=== PATIENT | female | born 1995 | race Caucasian/White ===

== ENCOUNTER 2018-03-11 05:43 | Inpatient (IN) ==
[2018-03-11 06:47] LABS: Hematocrit 27.4 VOL% (35.7-47.0); Hemoglobin 8.7 GM/DL (12.0-16.0); Immature Granulocytes % 1.6 %; Immature Granulocytes Absolute 0.17 #; Lymphocytes # 1.4 10*3/uL (1.4-4.0); Lymphocytes % 13.3 % (21.3-54.2); Mean Corpuscular HGB Conc 31.8 GM/DL (32-36); Mean Corpuscular Hemoglobin 26 PG (27-34); Mean Corpuscular Volume 82.3 FL (87-102); Mean Platelet Volume 10.7 FL (9.6-12.0); Monocytes # 0.3 10*3/uL (0.11-0.8); Monocytes % 3.2 % (1.7-12.7); NRBC # 0.02 10*3/uL; Neutrophils # 8.7 10*3/uL (1.4-7.4); Neutrophils % 81.9 % (38.7-73.9); Platelet Count 314 T/CUMM (130-400); Red Blood Count 3.33 MC/CUMM (3.8-5.5); Red Cell Distribution Width 14.6 % (9.3-17.3); White Blood Count 10.6 T/CUMM (4-12)
[2018-03-11 11:23] LABS: Amorphous Crystals,Urine Occasional /HPF (Few); Apearance,Urine Slightly Hazy (Clear); Bilirubin,Urine Negative (Negative); Blood, Urine Negative (Negative); Glucose,Urine (UA) Negative (Negative); Ketones,Urine 20 mg/dL (Negative); Nitrite,Urine Negative (Negative); Protein,Urine Negative; RBC,Urine 3 /HPF (0-4); Squamous Epithelial Cell,Urine Occasional /HPF (0-10); Urine Color Yellow (Yellow); Urine Specific Gravity 1.008 (1.001-1.035); Urine Urobilinogen < 2.0 EU/DL (0.2-1.0); WBC,Urine 12 /HPF (0-6)
[2018-03-12 07:23] LABS: Eosinophils % 0.3 % (0.00-10.9); Hematocrit 18.1 VOL% (35.7-47.0); Immature Granulocytes % 0.9 %; Lymphocytes # 2.1 10*3/uL (1.4-4.0); Lymphocytes % 18.6 % (21.3-54.2); Mean Corpuscular HGB Conc 31.5 GM/DL (32-36); Mean Corpuscular Hemoglobin 26 PG (27-34); Mean Corpuscular Volume 83.8 FL (87-102); Mean Platelet Volume 10.6 FL (9.6-12.0); Monocytes # 0.6 10*3/uL (0.11-0.8); Monocytes % 5.5 % (1.7-12.7); Neutrophils # 8.6 10*3/uL (1.4-7.4); Neutrophils % 74.7 % (38.7-73.9); Platelet Count 215 T/CUMM (130-400); Red Blood Count 2.16 MC/CUMM (3.8-5.5); Red Cell Distribution Width 14.7 % (9.3-17.3); White Blood Count 11.5 T/CUMM (4-12)
[2018-03-12 07:25] LABS: Hemoglobin 5.7 GM/DL (12.0-16.0)
[2018-03-13 06:24] LABS: Hematocrit 25.5 VOL% (35.7-47.0); Hemoglobin 8.3 GM/DL (12.0-16.0)
[2018-03-13 07:21] VITALS: BP 113/67
== END 2018-03-13 11:40 | disposition home or self-care (01) | DRG 765 ==
LOC: N.LDOUT 05:43 → N.LD 05:44 → N.OB 12:11
PROVIDERS: ADMIT Specialist; ATTEND Specialist

== ENCOUNTER 2021-06-27 22:53 | Inpatient (IN) ==
[2021-06-28 02:52] LABS: Basophils # 0.1 10*3/uL (0.0-0.2); Basophils % 0.7 % (0.0-0.8); Eosinophils % 0.2 % (0.00-10.9); Hematocrit 31.7 VOL% (35.7-47.0); Immature Granulocytes % 0.4 %; Immature Granulocytes Absolute 0.03 #; Lymphocytes % 23.9 % (21.3-54.2); Mean Corpuscular HGB Conc 31.5 GM/DL (32-36); Mean Corpuscular Volume 85.9 FL (87-102); Mean Platelet Volume 9.8 FL (9.6-12.0); Neutrophils % 70.8 % (38.7-73.9); Platelet Count 431 T/CUMM (130-400); Red Blood Count 3.69 MC/CUMM (3.8-5.5); Red Cell Distribution Width 14.2 % (9.3-17.3); White Blood Count 8.5 T/CUMM (4-12)
[2021-06-28 03:02] LABS: PT Patient Result 11.4 SECS (10.5-12.0)
[2021-06-28] MEDS ORDERED: medroxyPROGESTERone 5 MG TABLET PO STA (03:37)
[2021-06-28] MEDS ORDERED: medroxyPROGESTERone 10 MG TABLET PO STA (03:53)
[2021-06-28 04:15] LABS: Bilirubin,Urine Negative (Negative); Blood, Urine Large mg/dL (Negative); Glucose,Urine (UA) Negative (Negative); Ketones,Urine Negative (Negative); Mucus,Urine Moderate /LPF (Occasional); Nitrite,Urine Negative (Negative); Protein,Urine 30 MG/DL; RBC,Urine 1052 /HPF (0-4); Squamous Epithelial Cell,Urine Occasional /HPF (0-10); Urine Appearance Slightly Hazy (Clear); Urine Color Yellow (Yellow); Urine Specific Gravity 1.026 (1.001-1.035); Urine Urobilinogen < 2.0 EU/DL (<2.0)
[2021-06-28] MEDS ORDERED: SODIUM CHLORIDE 0.9% 1,000 ML IV STA (04:22)
[2021-06-28 05:41] LABS: Alanine Aminotransferase 17 U/L (13-56); Albumin 3.9 G/DL (3.4-5.0); Alkaline Phosphatase 66 U/L (45-117); Aspartate Amino Transferase 12 U/L (0-37); Bilirubin,Total < 0.39 MG/DL (0.20-1.00); Blood Urea Nitrogen 15 MG/DL (7-18); Calcium 8.8 MG/DL (8.5-10.1); Carbon Dioxide 24 MMOL/L (21-32); Estimated Glom Filtration Rate 99 ML/MIN; Glucose 140 MG/DL (74-106); Osmolality,Calculated 279.5 MOS/KG (273-304); Potassium 3.7 MMOL/L (3.5-5.1); Sodium 139 MMOL/L (136-145); Total Protein 6.9 G/DL (6.4-8.2)
[2021-06-28 06:13] LABS: Basophils % 0.3 % (0.0-0.8); Eosinophils % 0.1 % (0.00-10.9); Hematocrit 27.7 VOL% (35.7-47.0); Hemoglobin 8.7 GM/DL (12.0-16.0); Immature Granulocytes % 0.6 %; Immature Granulocytes Absolute 0.06 #; Lymphocytes # 0.9 10*3/uL (1.4-4.0); Lymphocytes % 8.9 % (21.3-54.2); Mean Corpuscular HGB Conc 31.4 GM/DL (32-36); Mean Corpuscular Volume 86.8 FL (87-102); Mean Platelet Volume 9.5 FL (9.6-12.0); Monocytes % 2.9 % (1.7-12.7); Neutrophils % 87.2 % (38.7-73.9); Platelet Count 397 T/CUMM (130-400); Red Blood Count 3.19 MC/CUMM (3.8-5.5); Red Cell Distribution Width 14.1 % (9.3-17.3); White Blood Count 10.3 T/CUMM (4-12)
[2021-06-28] MEDS ORDERED: SODIUM CHLORIDE 0.9% 500 ML IV STA (06:21)
[2021-06-28] MEDS ORDERED: ONDANSETRON 4 MG/2 ML VIAL IV PRN (10:01)
[2021-06-28] MEDS ORDERED: MAGNESIUM HYDROXIDE SUSP 30 ML UDCUP PO PRN (10:01)
[2021-06-28] MEDS ORDERED: ACETAMINOPHEN 325 MG TABLET PO PRN (10:01)
[2021-06-28] MEDS ORDERED: SODIUM CHLORIDE 0.9% 1,000 ML IV PRN (10:04)
[2021-06-28] MEDS: LACTATED RINGERS 1,000 ML IV SCH ×3 (11:00→23:38)
[2021-06-28] MEDS ORDERED: medroxyPROGESTERone 10 MG TABLET PO SCH (16:30)
[2021-06-28] MEDS ORDERED: medroxyPROGESTERone 5 MG TABLET PO SCH (17:00)
[2021-06-28] MEDS: medroxyPROGESTERone 10 MG TABLET PO SCH (17:53)
[2021-06-28] MEDS: TRANEXAMIC ACID TAB 650 MG TABLET PO SCH ×2 (17:53→22:24)
[2021-06-29 05:48] LABS: Basophils % 0.4 % (0.0-0.8); Eosinophils # 0.1 10*3/uL (0.0-0.87); Eosinophils % 0.9 % (0.00-10.9); Immature Granulocytes % 0.7 %; Immature Granulocytes Absolute 0.04 #; Lymphocytes % 35.9 % (21.3-54.2); Mean Corpuscular HGB Conc 30.4 GM/DL (32-36); Mean Corpuscular Volume 88.9 FL (87-102); Mean Platelet Volume 10.1 FL (9.6-12.0); Monocytes % 4.1 % (1.7-12.7); Platelet Count 308 T/CUMM (130-400); Red Blood Count 1.89 MC/CUMM (3.8-5.5); Red Cell Distribution Width 14.6 % (9.3-17.3); White Blood Count 5.7 T/CUMM (4-12)
[2021-06-29 05:57] LABS: Hematocrit 16.8 VOL% (35.7-47.0); Hemoglobin 5.1 GM/DL (12.0-16.0)
[2021-06-29] MEDS ORDERED: IRON SUCROSE 300 MG in SODIUM CHLORIDE 0.9% 100 ML IV ONE (07:43)
[2021-06-29] MEDS: LACTATED RINGERS 1,000 ML IV SCH ×3 (08:06→18:22)
[2021-06-29 08:47] LABS: Band Neutrophils 1 % (0-10); Lymphocytes 33 % (20-55); Segmented Neutrophils 65 % (50-85); Total Cells Counted 100
[2021-06-29 08:48] LABS: Hypochromia 2+; Platelet Estimate Normal; Polychromasia Slight
[2021-06-29] MEDS: medroxyPROGESTERone 10 MG TABLET PO SCH (08:54)
[2021-06-29] MEDS: TRANEXAMIC ACID TAB 650 MG TABLET PO SCH ×3 (08:54→21:23)
[2021-06-29] MEDS: ESTROGENS(CONJ) 25 MG VIAL IV SCH ×4 (10:21→21:23)
[2021-06-29] MEDS ORDERED: SODIUM CHLORIDE 0.9% 1,000 ML IV PRN ×3 (10:36→14:16)
[2021-06-29] MEDS: buPROPion 75 MG TABLET PO SCH (11:04)
[2021-06-29] MEDS ORDERED: ACETAMINOPHEN 325 MG TABLET PO ONE (13:35)
[2021-06-29 13:41] LABS: Basophils % 0.3 % (0.0-0.8); Eosinophils % 0.1 % (0.00-10.9); Immature Granulocytes % 0.7 %; Immature Granulocytes Absolute 0.05 #; Lymphocytes # 1.2 10*3/uL (1.4-4.0); Lymphocytes % 18.2 % (21.3-54.2); Mean Corpuscular HGB Conc 30.8 GM/DL (32-36); Mean Corpuscular Volume 87.7 FL (87-102); Mean Platelet Volume 9.8 FL (9.6-12.0); Monocytes % 3.4 % (1.7-12.7); Neutrophils % 77.3 % (38.7-73.9); Platelet Count 299 T/CUMM (130-400); Red Blood Count 1.63 MC/CUMM (3.8-5.5); Red Cell Distribution Width 14.7 % (9.3-17.3); White Blood Count 6.7 T/CUMM (4-12)
[2021-06-29 13:48] LABS: Hemoglobin 4.4 GM/DL (12.0-16.0)
[2021-06-29 13:49] LABS: Hematocrit 14.3 VOL% (35.7-47.0)
[2021-06-29 14:00] LABS: PT Patient Result 11.1 SECS (10.5-12.0); Partial Thromboplastin Time 23.4 SECS (23.8-32.1)
[2021-06-29] MEDS: methylPREDNISolone SOD SUC 125 MG/2 ML VIAL IV SCH (14:03)
[2021-06-29] MEDS: diphenhydrAMINE 50 MG/1 ML VIAL IV SCH ×2 (14:04→20:15)
[2021-06-29] MEDS ORDERED: ceFAZolin 2,000 MG/50 ML DUPLEX IV ONE (14:33)
[2021-06-29] MEDS ORDERED: SUCCINYLCHOLINE 200 MG/10 ML VIAL ONE (14:54)
[2021-06-29] MEDS ORDERED: propofoL 200 MG/20 ML VIAL IV ONE (14:54)
[2021-06-29] MEDS ORDERED: LIDOCAINE 2% 5 ML VIAL ONE (14:54)
[2021-06-29] MEDS ORDERED: MIDAZOLAM 2 MG/2 ML VIAL ONE (14:54)
[2021-06-29] MEDS ORDERED: fentaNYL 100 MCG/2 ML VIAL ONE (14:54)
[2021-06-29] MEDS ORDERED: DEXAMETHASONE 4 MG/1 ML VIAL ONE (15:50)
[2021-06-29] MEDS ORDERED: SEVOFLURANE 1 UNIT/15 MINUTE INH ONE ×5 (15:50→16:43)
[2021-06-29] MEDS ORDERED: ONDANSETRON 4 MG/2 ML VIAL ONE (15:50)
[2021-06-29] MEDS ORDERED: ROCURONIUM 50 MG/5 ML VIAL IV ONE ×2 (15:50→16:32)
[2021-06-29] MEDS ORDERED: FLUORESCEIN 500 MG/5 ML VIAL IV ONE (16:30)
[2021-06-29] MEDS ORDERED: SUGAMMADEX 200 MG/2 ML VIAL IV ONE (16:32)
[2021-06-29] MEDS ORDERED: ACETAMINOPHEN INJ 1,000 MG/100 ML VIAL IV ONE (16:39)
[2021-06-29] MEDS ORDERED: SODIUM CHLORIDE 0.9% 1,000 ML IV ONE (16:39)
[2021-06-29] MEDS ORDERED: TISSUE ADHESIVE 1 EACH APPLICATOR TOP ONE (16:55)
[2021-06-29] MEDS ORDERED: IBUPROFEN 800 MG TABLET PO PRN (17:23)
[2021-06-29] MEDS ORDERED: BISACODYL 10 MG SUPP RECTAL PRN (17:23)
[2021-06-29] MEDS ORDERED: BENZOCAINE/MENTHOL LOZENGE 18/BOX PO PRN (17:23)
[2021-06-29] MEDS ORDERED: DOCUSATE SODIUM 100 MG CAPSULE PO PRN (17:23)
[2021-06-29] MEDS ORDERED: METOCLOPRAMIDE 10 MG/2 ML VIAL IV PRN (17:23)
[2021-06-29] MEDS ORDERED: PROMETHAZINE 25 MG/1 ML VIAL IM PRN (17:23)
[2021-06-29] MEDS ORDERED: LACTATED RINGERS 1,000 ML IV SCH (17:30)
[2021-06-29] MEDS ORDERED: ONDANSETRON 4 MG/2 ML VIAL IV PRN (17:52)
[2021-06-29] MEDS: KETOROLAC 30 MG/1 ML VIAL IM SCH ×2 (17:58→23:13)
[2021-06-29] MEDS: HYDROmorphone 2 MG/1 ML VIAL IV PRN ×6 (18:00→21:39)
[2021-06-29 18:04] LABS: Basophils % 0.3 % (0.0-0.8); Eosinophils % 0.1 % (0.00-10.9); Hematocrit 29.2 VOL% (35.7-47.0); Immature Granulocytes Absolute 0.16 #; Lymphocytes # 1.2 10*3/uL (1.4-4.0); Lymphocytes % 7.9 % (21.3-54.2); Mean Corpuscular HGB Conc 33.2 GM/DL (32-36); Mean Corpuscular Volume 86.1 FL (87-102); Mean Platelet Volume 9.8 FL (9.6-12.0); Monocytes % 1.2 % (1.7-12.7); NRBC # 0.02 10*3/uL; Neutrophils % 89.5 % (38.7-73.9); Platelet Count 261 T/CUMM (130-400); Red Blood Count 3.39 MC/CUMM (3.8-5.5); Red Cell Distribution Width 13.9 % (9.3-17.3); White Blood Count 15.6 T/CUMM (4-12)
[2021-06-29 18:06] LABS: Hemoglobin 9.7 GM/DL (12.0-16.0)
[2021-06-29 18:11] LABS: Bilirubin,Urine Negative (Negative); Blood, Urine Negative (Negative); Glucose,Urine (UA) Negative (Negative); Ketones,Urine Negative (Negative); Mucus,Urine Occasional /LPF (Occasional); Nitrite,Urine Negative (Negative); Protein,Urine Negative; RBC,Urine 1 /HPF (0-4); Squamous Epithelial Cell,Urine Occasional /HPF (0-10); Urine Appearance CLEAR (Clear); Urine Color Straw (Yellow); Urine Specific Gravity 1.006 (1.001-1.035); Urine Urobilinogen < 2.0 EU/DL (<2.0)
[2021-06-29] MEDS ORDERED: DOCUSATE SODIUM 100 MG CAPSULE PO SCH (21:30)
[2021-06-29 21:45] LABS: Hematocrit 32.1 VOL% (35.7-47.0); Hemoglobin 10.8 GM/DL (12.0-16.0)
[2021-06-29] MEDS ORDERED: ceFAZolin 2,000 MG in SODIUM CHLORIDE 0.9% 100 ML IV SCH (23:30)
[2021-06-29] MEDS: ceFAZolin 2,000 MG in SODIUM CHLORIDE 0.9% 100 ML IV SCH (23:42)
[2021-06-29] MEDS: oxyCODONE/ACETAMINOPHEN 5-325 MG TABLET PO PRN (23:51)
[2021-06-30 00:25] LABS: Basophils % 0.1 % (0.0-0.8); Hematocrit 31.1 VOL% (35.7-47.0); Hemoglobin 10.4 GM/DL (12.0-16.0); Immature Granulocytes % 0.8 %; Immature Granulocytes Absolute 0.13 #; Lymphocytes # 0.8 10*3/uL (1.4-4.0); Lymphocytes % 5.4 % (21.3-54.2); Mean Corpuscular HGB Conc 33.4 GM/DL (32-36); Mean Platelet Volume 9.5 FL (9.6-12.0); Monocytes % 2.4 % (1.7-12.7); Neutrophils % 91.3 % (38.7-73.9); Platelet Count 277 T/CUMM (130-400); Red Blood Count 3.66 MC/CUMM (3.8-5.5); Red Cell Distribution Width 14.3 % (9.3-17.3); White Blood Count 15.3 T/CUMM (4-12)
[2021-06-30] MEDS: methylPREDNISolone SOD SUC 125 MG/2 ML VIAL IV SCH (01:58)
[2021-06-30] MEDS: diphenhydrAMINE 50 MG/1 ML VIAL IV SCH ×2 (01:58→08:09)
[2021-06-30] MEDS: LACTATED RINGERS 1,000 ML IV SCH ×2 (02:01→12:08)
[2021-06-30 02:56] LABS: Lymphocytes 6 % (20-55); Segmented Neutrophils 92 % (50-85); Total Cells Counted 100
[2021-06-30 02:57] LABS: Platelet Estimate Normal
[2021-06-30 02:58] LABS: Microcytosis 1+
[2021-06-30 03:00] LABS: Polychromasia Slight
[2021-06-30] MEDS: oxyCODONE/ACETAMINOPHEN 5-325 MG TABLET PO PRN ×4 (04:17→19:49)
[2021-06-30 04:40] LABS: Basophils % 0.1 % (0.0-0.8); Hematocrit 29.7 VOL% (35.7-47.0); Hemoglobin 9.9 GM/DL (12.0-16.0); Immature Granulocytes Absolute 0.15 #; Lymphocytes # 0.9 10*3/uL (1.4-4.0); Lymphocytes % 5.8 % (21.3-54.2); Mean Corpuscular HGB Conc 33.3 GM/DL (32-36); Mean Corpuscular Volume 84.9 FL (87-102); Mean Platelet Volume 9.6 FL (9.6-12.0); Monocytes % 2.1 % (1.7-12.7); Platelet Count 275 T/CUMM (130-400); Red Cell Distribution Width 14.6 % (9.3-17.3); White Blood Count 15.1 T/CUMM (4-12)
[2021-06-30 05:01] LABS: Albumin 2.9 G/DL (3.4-5.0); Bilirubin,Total 0.7 MG/DL (0.20-1.00); Calcium 8.1 MG/DL (8.5-10.1); Osmolality,Calculated 276.5 MOS/KG (273-304); Potassium 4.2 MMOL/L (3.5-5.1); Total Protein 5.6 G/DL (6.4-8.2)
[2021-06-30] MEDS: KETOROLAC 30 MG/1 ML VIAL IM SCH ×2 (05:21→12:15)
[2021-06-30 07:26] LABS: Lymphocytes 5 % (20-55); Metamyelocytes 1 %; Segmented Neutrophils 94 % (50-85); Total Cells Counted 100
[2021-06-30 07:27] LABS: Hypochromia 1+; Platelet Estimate Normal; Polychromasia Slight
[2021-06-30] MEDS: buPROPion 75 MG TABLET PO SCH (08:11)
[2021-06-30] MEDS: PANTOPRAZOLE 40 MG TABLET PO SCH (08:11)
[2021-06-30] MEDS: DOCUSATE SODIUM 100 MG CAPSULE PO SCH (08:11)
[2021-06-30] MEDS: ceFAZolin 2,000 MG in SODIUM CHLORIDE 0.9% 100 ML IV SCH (08:34)
[2021-06-30] MEDS: FERROUS SULFATE 325 MG TABLET PO SCH ×3 (08:34→20:54)
[2021-06-30] MEDS ORDERED: IRON SUCROSE 300 MG in SODIUM CHLORIDE 0.9% 100 ML IV ONE (09:00)
[2021-06-30 09:22] LABS: Hematocrit 39.3 VOL% (35.7-47.0); Hemoglobin 12.8 GM/DL (12.0-16.0)
[2021-06-30] MEDS: HYDROmorphone 2 MG/1 ML VIAL IV PRN (12:06)
[2021-06-30 14:09] LABS: Hematocrit 30.9 VOL% (35.7-47.0); Hemoglobin 10.3 GM/DL (12.0-16.0)
[2021-06-30] MEDS: ceFAZolin 2,000 MG/50 ML DUPLEX IV SCH ×2 (16:05→23:35)
[2021-07-01] MEDS: oxyCODONE/ACETAMINOPHEN 5-325 MG TABLET PO PRN ×4 (03:14→19:49)
[2021-07-01 03:16] LABS: Basophils % 0.3 % (0.0-0.8); Hematocrit 27.7 VOL% (35.7-47.0); Hemoglobin 8.9 GM/DL (12.0-16.0); Immature Granulocytes % 1.1 %; Immature Granulocytes Absolute 0.11 #; Lymphocytes % 20.3 % (21.3-54.2); Mean Corpuscular HGB Conc 32.1 GM/DL (32-36); Mean Corpuscular Volume 88.2 FL (87-102); Mean Platelet Volume 9.7 FL (9.6-12.0); Monocytes % 4.3 % (1.7-12.7); NRBC # 0.03 10*3/uL; Platelet Count 257 T/CUMM (130-400); Red Blood Count 3.14 MC/CUMM (3.8-5.5); Red Cell Distribution Width 15.5 % (9.3-17.3)
[2021-07-01 03:37] LABS: Alanine Aminotransferase 15 U/L (13-56); Albumin 2.4 G/DL (3.4-5.0); Alkaline Phosphatase 37 U/L (45-117); Aspartate Amino Transferase 11 U/L (0-37); Bilirubin,Total < 0.39 MG/DL (0.20-1.00); Blood Urea Nitrogen 9 MG/DL (7-18); Calcium 7.7 MG/DL (8.5-10.1); Carbon Dioxide 24 MMOL/L (21-32); Estimated Glom Filtration Rate 122 ML/MIN; Glucose 94 MG/DL (74-106); Osmolality,Calculated 281.1 MOS/KG (273-304); Potassium 3.7 MMOL/L (3.5-5.1); Sodium 142 MMOL/L (136-145); Total Protein 5.1 G/DL (6.4-8.2)
[2021-07-01] MEDS: DOCUSATE SODIUM 100 MG CAPSULE PO SCH (08:02)
[2021-07-01] MEDS: FERROUS SULFATE 325 MG TABLET PO SCH ×3 (08:03→21:19)
[2021-07-01] MEDS: PANTOPRAZOLE 40 MG TABLET PO SCH (08:03)
[2021-07-01] MEDS: buPROPion 75 MG TABLET PO SCH (08:03)
[2021-07-01] MEDS: ceFAZolin 2,000 MG/50 ML DUPLEX IV SCH (08:09)
[2021-07-01] MEDS: MAGNESIUM HYDROXIDE SUSP 30 ML UDCUP PO PRN ×2 (09:19→19:48)
[2021-07-01] MEDS: IRON SUCROSE 300 MG in SODIUM CHLORIDE 0.9% 100 ML IV SCH (09:20)
[2021-07-02] MEDS: oxyCODONE/ACETAMINOPHEN 5-325 MG TABLET PO PRN (05:00)
[2021-07-02 05:04] LABS: Basophils % 0.4 % (0.0-0.8); Eosinophils % 0.4 % (0.00-10.9); Hematocrit 28.9 VOL% (35.7-47.0); Hemoglobin 9.1 GM/DL (12.0-16.0); Immature Granulocytes % 2.3 %; Immature Granulocytes Absolute 0.17 #; Lymphocytes # 1.6 10*3/uL (1.4-4.0); Lymphocytes % 22.5 % (21.3-54.2); Mean Corpuscular HGB Conc 31.5 GM/DL (32-36); Mean Platelet Volume 9.3 FL (9.6-12.0); Monocytes % 4.5 % (1.7-12.7); NRBC # 0.03 10*3/uL; Neutrophils % 69.9 % (38.7-73.9); Platelet Count 275 T/CUMM (130-400); Red Blood Count 3.21 MC/CUMM (3.8-5.5); Red Cell Distribution Width 15.5 % (9.3-17.3); White Blood Count 7.3 T/CUMM (4-12)
[2021-07-02 07:58] VITALS: BP 92/57
[2021-07-02] MEDS: PANTOPRAZOLE 40 MG TABLET PO SCH (08:40)
[2021-07-02] MEDS: DOCUSATE SODIUM 100 MG CAPSULE PO SCH (08:40)
[2021-07-02] MEDS: buPROPion 75 MG TABLET PO SCH (08:40)
[2021-07-02] MEDS: FERROUS SULFATE 325 MG TABLET PO SCH (08:40)
[2021-07-02] MEDS: IRON SUCROSE 300 MG in SODIUM CHLORIDE 0.9% 100 ML IV SCH (09:31)
== END 2021-07-02 11:11 | disposition home or self-care (01) | DRG 982 ==
LOC: N.EDINP 22:53 → N.ED 22:53 → N.3E 06-28 13:55 → SUATTDRO 06-29 17:23 → N.CC 06-29 17:28 → N.OB 06-30 15:59
PROVIDERS: ADMIT Student in an Organized Health Care Education/Training Program; ATTEND Internal Medicine